=== PATIENT | male | born 1980 | race Caucasian/White ===

== ENCOUNTER 2020-11-07 08:26 | Day surgery (SDC) | payer OTHER ==
[2020-11-07] VITALS (9 sets, daily range): BP systolic 122–159; BP diastolic 68–99
[~2020-11-07] VITALS: Ht 182.8 cm; Wt 97.7 kg
[2020-11-07] MEDS ORDERED: GLUCAGON EMERGENCY 1 MG/KIT IM ONE (08:45)
[2020-11-07] MEDS ORDERED: GLUCAGON EMERGENCY 1 MG/KIT IV ONE (09:00)
--- NOTE | 2020-11-07 09:31 | ED General ---
General Chief Complaint: Foreign Body Stated Complaint: FOOD BOLUS Nursing Triage Note: AMB TO ROOM REPORTS WAS EATING ROAST AROUND 7PM WHEN ROAST DID NOT GO DOWN UNABLE TO DRINK WATER HAS TO CON'T TO SPIT UP SALIVA Nursing Sepsis Screen: No Definite Risk Source of Information: Patient Exam Limitations: No Limitations History of Present Illness Date Seen by Provider: Nov 07, 2020 Time Seen by Provider: 08:30 Initial Comments Patient is a 40-year-old male who presents to the emergency department today with a chief complaint of roast beef stuck in his esophagus. Patient states that he was eating last night around 7 PM when he had onset of the sensation of food getting stuck in his mid chest. He states that he tried all of oil, butter and water to try and push the foreign body down but he was unable to. Patient states that he tried to make himself vomit but could not get it up. Patient states he was unable to sleep last night secondary to the discomfort and now is having trouble tolerating his own secretions. Patient denies any other complaints of recent illness or injury. All other review of systems reviewed and negative except as stated. Timing/Duration: 12-24 Hours Severity: Moderate Associated Systoms: Denies Symptoms Allergies and Home Medications Allergies Coded Allergies: No Known Drug Allergies (Unverified , 11/07/20) Patient Home Medication List Home Medication List Reviewed: Yes Review of Systems Review of Systems Constitutional: see HPI EENTM: no symptoms reported Respiratory: no symptoms reported Cardiovascular: no symptoms reported Gastrointestinal: other (Sensation of esophageal foreign body) Musculoskeletal: no symptoms reported Skin: no symptoms reported All Other Systems Reviewed Negative Unless Noted: Yes Past Blhaljx-Arwzci-Hcjrgv Hx Patient Social History Alcohol Use: Occasionally Uses Alcohol Beverage of Choice: Beer Smoking Status: Never a Smoker Recent Infectious Disease Expo: No Past Medical History Surgeries: No Respiratory: No Cardiac: No Neurological: No Genitourinary: No Gastrointestinal: No Musculoskeletal: No Endocrine: No HEENT: No Cancer: No Psychosocial: No Integumentary: No Physical Exam Vital Signs Vital Signs - First Documented 11/07/20 08:30 Temp 36.1 Pulse 85 Resp 18 B/P (MAP) 171/118 (135) Pulse Ox 97 O2 Delivery Room Air Capillary Refill : Less Than 3 Seconds Height, Weight, BMI Height: '" Weight: lbs. oz. kg; 29.00 BMI Method: General Appearance: No Apparent Distress, WD/WN HEENT: Normal ENT Inspection Respiratory: Lungs Clear, Normal Breath Sounds, No Accessory Muscle Use, No Respiratory Distress Cardiovascular: Regular Rate, Rhythm Gastrointestinal: Normal Bowel Sounds, Non Tender, Soft Extremity: Normal Inspection, Normal Range of Motion Neurologic/Psychiatric: Alert, Oriented x3, No Motor/Sensory Deficits Skin: Normal Color, Warm/Dry Progress/Results/Core Measures Suspected Sepsis Recent Fever Within 48 Hours: No Infection Criteria Present: None New/Unexplained Altered Menta: No Sepsis Screen: No Definite Risk SIRS Temperature: Pulse: 85 Respiratory Rate: 18 Blood Pressure 171 /118 Mean: 135 Results/Orders My Orders Orders - SIERRA MARQUEZ MD Ed Iv/Invasive Line Start (11/07/20 08:43) Glucagon Emergency Kit (Glucagon Emergen (11/07/20 09:00) Medications Given in ED Current Medications Medications Dose Ordered Sig/Kirk Route Start Time Stop Time Status Last Admin Dose Admin Glucagon 1 mg ONCE ONCE IV 11/07/20 09:00 11/07/20 09:01 DC 11/07/20 08:52 1 MG Vital Signs/I&O 11/07/20 08:30 Temp 36.1 Pulse 85 Resp 18 B/P (MAP) 171/118 (135) Pulse Ox 97 O2 Delivery Room Air Capillary Refill : Less Than 3 Seconds Blood Pressure Mean: 135 Progress Note : Time: 09:37 Progress Note Case discussed with Dr. Camarena on for general surgery. Recommends admission IV fluids pain and nausea medications and he will be over from [facility] shortly to address his foreign body. Departure Communication (Admissions) Time/Spoke to Admitting Phy: 09:[address] Camarena, recommended admission and pain and nausea medications with IVF Impression Primary Impression: Impacted esophageal foreign body Qualified Codes: T18.108A - Unspecified foreign body in esophagus causing other injury, initial encounter Disposition: HOME, SELF-CARE Condition: Stable Admissions Decision to Admit Reason: Admit from ER (General) Decision to Admit/Date: Nov 07, 2020 Time/Decision to Admit Time: 09:39 Departure-Patient Inst. Decision time for Depature: 09:43 Referrals: NO,LOCAL PHYSICIAN (PCP/Family) Primary Care Physician SIERRA MARQUEZ MD Nov 07, 2020 09:31
[2020-11-07] MEDS ORDERED: ONDANSETRON 4 MG/2 ML (SDV) Z0FRAN IV PRN (11:45)
[2020-11-07] MEDS ORDERED: fentaNYL INJ 100 MCG/2 ML AMP IV PRN (11:45)
[2020-11-07] MEDS ORDERED: NS IV 1000 ML 1,000 ML IV SCH (11:45)
[2020-11-07] MEDS ORDERED: CATHETER FLUSH 10 ML SYR IV PRN (11:45)
[2020-11-07] MEDS ORDERED: RT-ALBUTEROL INHALER HFA (VENTOLIN HFA) 18 GM IH PRN (12:00)
[2020-11-07] MEDS ORDERED: MIDAZOLAM 2 MG/2 ML (VERSED) VIAL ONE ×2 (15:28→16:04)
[2020-11-07] MEDS ORDERED: PROPOFOL INJECTION 50 ML IV ONE (16:19)
[2020-11-07] MEDS ORDERED: ONDANSETRON 4 MG/2 ML (SDV) Z0FRAN ONE (16:19)
[2020-11-07] MEDS ORDERED: proPOfol 200 MG/20 ML (DIPRIVAN) VIAL IV ONE (16:19)
--- NOTE | 2020-11-07 16:22 | HISTORY AND PHYSICAL ---
DATE OF SERVICE: 11/07/2020 HISTORY OF PRESENT ILLNESS: The patient is a 40-year-old male who presented to the Emergency Department this morning with dysphagia. He states that he had a dinner last night and felt a substernal chest pressure sensation, which persisted. He tried to drink liquids to push this down; however, the discomfort persisted. He waited this out overnight; however, continued to persist and he presented to the Emergency Department. Glucagon was given; however, he continued to have symptoms. He does not report any classic symptoms of gastroesophageal reflux disease nor peptic ulcer disease. He also does not report any history of smoking or drinking any caffeinated beverages. He does drink alcohol once one or two times a month. PAST MEDICAL HISTORY: None. PAST SURGICAL HISTORY: None. ALLERGIES: No known drug allergies. MEDICATIONS: None. SOCIAL HISTORY: Negative smoke, social alcohol. FAMILY HISTORY: Noncontributory. VITAL SIGNS: Stable, afebrile. REVIEW OF SYSTEMS: Well-nourished male in no acute distress. He is not experiencing any shortness of breath or difficulty breathing. No chest pain, palpitations or diaphoresis. Dysphagia for liquids and solids currently with a substernal pressure sensation. No fever, chills, no recent inadvertent weight loss. PHYSICAL EXAMINATION: CHEST: Clear. Good breath sounds bilaterally. HEART: Regular, no murmurs. EXTREMITIES: No lower extremity edema, negative Homans sign. HEENT: No scleral icterus. NECK: No cervical lymphadenopathy. ABDOMEN: Soft, nontender, nondistended. No hernias. SKIN: Warm, dry. ASSESSMENT AND PLAN: A 40-year-old male with an esophageal foreign body, dysphagia and atypical gastroesophageal reflux disease. We will proceed with an EGD, potential removal of foreign body as well as balloon dilatation if distal esophageal stricture was identified and also do a biopsy of the stomach to rule out H. pylori. Job ID: [id number] DocumentID: [id number] Dictated Date: 11/07/2020 16:00:51 Cardiovascular Lab Director Date: 11/07/2020 16:21:16 Dictated By: NISHANT GR MD
--- NOTE | 2020-11-07 16:30 | Discharge Inst-Surgical ---
D/C Lap Instructions-KIDO New, Converted, or Re-Newed RX: RX on Chart Follow Up Appt PRN Activity as tolerated High Fiber Diet 25g or more per day Avoid Alcohol, Caffeine, Spicy [place] and Acid foods. Drink 64 fluid oz or more of fluids per day. Symptoms to Report: Fever over 101 degree F, Nausea/Vomiting If any problems/questions: Contact your physician or go to Emergency Room NISHANT GR MD Nov 07, 2020 16:30
[2020-11-07] MEDS ORDERED: PANT40TA2 PO (16:31)
--- NOTE | 2020-11-07 17:14 | Anesthesia-General Post-Op ---
MAC Patient Condition Mental Status/LOC: Same as Preop Cardiovascular: Satisfactory Nausea/Vomiting: Absent Respiratory: Satisfactory Pain: Controlled Complications: Absent Post Op Complications Complications None Follow Up Care/Instructions Patient Instructions None needed. Anesthesiology Discharge Order Discharge Order Patient is doing well, no complaints, stable vital signs, no apparent adverse anesthesia problems. No complications reported per nursing. ALVA DONALDSON CRNA Nov 07, 2020 17:14
--- NOTE | 2020-11-07 22:25 | OPERATIVE REPORT ---
DATE OF SERVICE: 11/07/2020 PREOPERATIVE DIAGNOSES: Dysphagia, atypical gastroesophageal reflux disease, esophageal foreign body. POSTOPERATIVE DIAGNOSES: Reflux esophagitis between stage II and III with mild distal esophageal stricture, small to moderate size hiatal hernia approximately 2.5 cm in size. Moderate gastritis. No distal obstructions. The esophageal foreign body had reduced on its own. PROCEDURE: EGD with biopsy and balloon dilatation. SURGEON: Nishant Gr MD. ANESTHESIA: Monitored anesthesia care. ESTIMATED BLOOD LOSS: Minimal. FINDINGS: Reflux esophagitis between stage II and III with mild distal esophageal stricture, small to moderate size hiatal hernia approximately 2.5 cm in size. Moderate gastritis. No distal obstructions. The esophageal foreign body had reduced on its own. DISPOSITION: The patient tolerated the procedure well. INDICATIONS: The patient is a 40-year-old male who presented to the Emergency Department this morning with dysphagia and inability to swallow. He states that he does not have classic symptoms of reflux and he was eating meats last night and felt a substernal pressure sensation and he tried to reduce this with water; however, would not. He tried to ride this out overnight however, his symptoms persisted. He does have some risk factors for peptic ulcer disease and gastroesophageal reflux disease, which include drinking a few times a month as well as spicy foods. DESCRIPTION OF PROCEDURE: The patient was brought to the operating room, laid in the left lateral decubitus position. After adequate IV pain and sedative medications and monitored anesthesia care, the mouthpiece was applied. The endoscope was placed in the mouth, visualizing the pharynx and hypopharyngeal region. Vocal cords, epiglottis and vallecula identified and appeared to be normal. The endoscope was gently intubated into the esophageal opening and esophagus insufflated. The endoscope was then advanced to the first, second and third portion of esophagus at the level of the GE junction, a reflux esophagitis between stage II and III identified as well as a mild distal esophageal stricture and Schatzki's ring identified. A biopsy was taken of this region with forceps with visualization of good hemostasis. The endoscope retroflexed, visualizing a small to moderate size hiatal hernia approximately 2.5 cm in size. There was a moderate severity gastritis. No formal ulcerations, polyps, or any neoplasms. The endoscope was then advanced through the pylorus and the first and second portion of the duodenum, which appeared normal with no distal obstructions. A biopsy was taken of the antrum to rule out H. pylori with visualization of good hemostasis. We then proceeded with balloon dilatation and the balloon was placed in the stomach and pulled back to the area of the stricture. A balloon was then insufflated 2, 4, then 6 atmospheres of pressure with moderate resistance or 20 mm in luminal diameter and left this in place for approximately 60 seconds. The balloon was then desufflated and removed with visualization of good hemostasis as well as no mucosal tears. Endoscope was then slowly withdrawn while taking a second look and suctioning of residual air with no additional findings. The patient tolerated the procedure well. We will start clear liquids and advance as tolerated. Once he is tolerating clears, he may be discharged home and he will also be instructed to proceed with Protonix 40 mg daily. Job ID: [id number] DocumentID: [id number] Dictated Date: 11/07/2020 16:25:44 Application Integrator Date: 11/07/2020 22:24:15 Dictated By: NISHANT GR MD
--- NOTE | 2020-11-08 08:18 | Anesthesia-General Post-Op ---
MAC Patient Condition Mental Status/LOC: Same as Preop Cardiovascular: Satisfactory Nausea/Vomiting: Absent Respiratory: Satisfactory Pain: Controlled Complications: Absent Post Op Complications Complications None Follow Up Care/Instructions Patient Instructions None needed. Anesthesiology Discharge Order Discharge Order Patient is doing well, no complaints, stable vital signs, no apparent adverse anesthesia problems. No complications reported per nursing. FLORIAN NORIEGA CRNA Nov 08, 2020 08:18
== END 2020-11-07 18:25 | disposition home or self-care (01) ==
LOC: ER 08:28 → 4TH 09:30 → SDC 09:30 → 4TH 09:30 → UNDOADMOB 09:30 → SDC 18:25 → UNDODISOB 18:25
PROVIDERS: ATTEND Surgery
DX: K22.2 Esophageal obstruction (principal); K21.00 Gastro-esophageal reflux disease with esophagitis, without bleeding; K44.9 Diaphragmatic hernia without obstruction or gangrene; K29.50 Unspecified chronic gastritis without bleeding; T18.128A Food in esophagus causing other injury, initial encounter
CPT/HCPCS: 87081; 87635; 94760; 96374